=== PATIENT | male | born 1995 | race Caucasian/White ===

== ENCOUNTER 2017-05-27 04:27 | Emergency (ER) | payer SELFPAY ==
[~2017-05-27] VITALS: Ht 182.9 cm; Wt 68.0 kg
--- NOTE | 2017-05-27 04:30 | NUR ---
Brought in by in custody for medical clearance. Patient to ER bed 1 for evaluation. Side rails up. Report given to Terrence SEGURA
[2017-05-27 04:35] VITALS: BP_SYST 133
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
--- NOTE | 2017-05-27 04:45 | NUR ---
ER Dr. Ghosh at bedside examining patient.
[2017-05-27] MEDS ORDERED: DIPH-TET-PERTUS Vaccine 0.5 ML VIAL (ADACEL) I.M. ONE (05:15)
[2017-05-27] MEDS ORDERED: LIDOCAINE MPF 1% 50 MG/5 ML AMP INJ ONE (05:15)
[2017-05-27] MEDS: BACITRACIN ZINC 15 GM TOPICAL OINTMENT TP SCH ×2 (05:22→07:36)
[2017-05-27] MEDS ORDERED: BACITRACIN 1 GM OINT TP ONE (05:31)
[2017-05-27] MEDS ORDERED: LIDOCAINE 1%, 20 ML MDV 20 ML ONE (05:31)
[2017-05-27] MEDS ORDERED: DIPHENHYDRAMINE INJ 50 MG/ML VIAL IM ONE (05:45)
[2017-05-27] MEDS ORDERED: HALOPERIDOL LACTATE 5 MG/ML VIAL IM ONE (05:45)
[2017-05-27] MEDS ORDERED: KETAMINE HCL 500 MG/10 ML VIAL IM ONE (05:45)
[2017-05-27] MEDS ORDERED: LORazepam 2 MG/ML VIAL IM ONE (05:45)
--- NOTE | 2017-05-27 05:50 | NUR ---
Patient has a 1 cm laceration to right wrist. Dr. Ghosh applied sutures using sterile technique. Edges well approximated. Site cleansed with sterile normal saline. Dressing of sterile gauze and gauze wrap applied to site. No bleeding noted. Pt tolerated well.
--- NOTE | 2017-05-27 05:50 | NUR ---
Patient has less than 1 cm laceration to 4th digit of left hand. Dr. Ghosh applied sutures using sterile technique. Edges well approximated. Site cleansed with sterile normal saline. Dressing of sterile gauze and gauze wrap applied to site. No bleeding noted. Pt tolerated well.
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
--- NOTE | 2017-05-27 06:07 | NUR ---
Administered ketamine injection per MD order.
--- NOTE | 2017-05-27 06:10 | NUR ---
Respiratory therapist at bedside.
--- NOTE | 2017-05-27 06:20 | NUR ---
Patient stable, sleeping. No signs of distress noted.
[2017-05-27] MEDS ORDERED: ceFAZolin SODIUM 1 GM VIAL IM ONE (06:30)
--- NOTE | 2017-05-27 06:50 | NUR ---
Note nilay in EDM - 05/27/17 at 1942 by NGOZI # 14 FR In and Out catheter with use of sterile technique. Immediate return of 100 ml dark yellow urine noted. Urine sample collected and sent to lab. Pt tolerated procedure well.
--- NOTE | 2017-05-27 06:50 | NUR ---
# 14 FR In and Out catheter with use of sterile technique per MD verbal order. Immediate return of 100 ml dark yellow urine noted. Urine sample collected and sent to lab. Pt tolerated procedure well.
[2017-05-27 07:09] LABS: BILIRUBIN,URINE 1+ (NEGATIVE); CLARITY/URINE HAZY (CLEAR); COLOR,URINE YELLOW (YELLOW); GLUCOSE,URINE NEGATIVE (NEGATIVE); KETONES,URINE 1+ (NEGATIVE); LEUKOCYTE ESTERASE ,URINE NEGATIVE (NEGATIVE); NITRITE, URINE NEGATIVE (NEGATIVE); PROTEIN URINE 1+ (NEGATIVE)
[2017-05-27 07:14] LABS: BLOOD, URINE TRACE (NEGATIVE)
--- NOTE | 2017-05-27 07:15 | NUR ---
Assumed care,Pt medicated for nausea/vomiting. Pt tolerated well.
[2017-05-27 07:21] LABS: BARBITURATE, URINE NEGATIVE (NEG <=200); BENZODIAZEPINE, URINE NEGATIVE (NEG <=150); CANNABINOID, URINE NEGATIVE (NEG <=50); COCAINE, URINE NEGATIVE (NEG <=150); METHAMPHETAMINES SCREEN,URINE NEGATIVE (NEG <=500); OPIATE, URINE POSITIVE (NEG <=100); PHENCYCLIDINE SCREEN,URINE NEGATIVE (NEG <=25); UR TRICYCLIC ANTIDEPRESSANTS NEGATIVE (NEG <=300); URINE AMPHETAMINE NEGATIVE (NEG <=500); URINE METHADONE NEGATIVE (NEG <=200); URINE OXYCODONE SCREEN NEGATIVE (NEG <=100); URINE PROPOXYPHENE SCREEN NEGATIVE (NEG <=300)
[2017-05-27 07:27] LABS: BACTERIA,URINE RARE /HPF (None Seen); HYALINE CASTS, URINE 0-10 /LPF (None Seen); URINE AMORPHOUS URATE 1+ /HPF (None Seen); WBC,URINE 0-3 /HPF (0-3)
[2017-05-27 07:28] LABS: MUCUS,URINE 1+ /LPF (None Seen)
[2017-05-27] MEDS ORDERED: METOCLOPRAMIDE HCL 10 MG/2 ML VIAL IM ONE (07:30)
[2017-05-27] MEDS ORDERED: ONDANSETRON HCL 4 MG/2 ML VIAL ONE (07:30)
[2017-05-27] MEDS ORDERED: METOCLOPRAMIDE HCL 10 MG/2 ML VIAL ONE (07:32)
[2017-05-27 08:15] VITALS: BP_SYST 133
--- NOTE | 2017-05-27 08:15 | NUR ---
Patient given written and verbal discharge instructions and verbalizes understanding. ER MD discussed with patient the results and treatment provided. Patient in stable condition. ID arm band removed. no Rx given. Patient educated on pain management and to follow up with PMD. Pain Scale 0. Opportunity for questions provided and answered.Pt escorted by UDAY.
== END 2017-05-27 08:15 ==
LOC: SED 04:27
DX: S61.512A Laceration without foreign body of left wrist, initial encounter (principal); S61.212A Laceration without foreign body of right middle finger without damage to nail, initial encounter; R45.1 Restlessness and agitation; R41.82 Altered mental status, unspecified; W45.8XXA Other foreign body or object entering through skin, initial encounter; Y93.89 Activity, other specified; Y92.89 Other specified places as the place of occurrence of the external cause; Y99.8 Other external cause status
CPT/HCPCS: 12001; 73120; 80307; 81000; 90471; 90715; 96372; 99285; J0690; J2001; J2060; J2765; J2405